=== PATIENT | male | born 1985 | race African-American/Black ===

== ENCOUNTER 2024-03-06 14:31 | Emergency (ER) | payer MEDICAID ==
[~2024-03-06] VITALS: Ht 175.3 cm; Wt 99.8 kg
[2024-03-06 14:51] VITALS: BP 145/79; PULSE 97; RESP 16; TEMP 98.6; O2SAT 100
[2024-03-06] MEDS ORDERED: AMOX-494 MT (17:24)
[2024-03-06] MEDS ORDERED: IBUP-2029 MT (17:24)
[2024-03-06] MEDS: KETOROLAC 30MG/ML VIAL IM ONE (17:30)
[2024-03-06] MEDS: DEXAMETHASONE 4MG/ML 1ML VIAL IM ONE (17:30)
== END 2024-03-06 18:00 | disposition home or self-care (01) ==
LOC: ER 14:38
DX: J02.9 Acute pharyngitis, unspecified (principal)
CPT/HCPCS: 96372; 99284; J1100; J1885; Z7610

== ENCOUNTER 2024-05-30 09:22 | Emergency (ER) | payer MEDICAID ==
[~2024-05-30] VITALS: Ht 175.3 cm; Wt 96.0 kg
[~2024-05-30 09:22] MED LIST: AMOX-494 MT; IBUP-2029 MT
[2024-05-30 09:23] VITALS: O2SAT 97
[2024-05-30 09:26] VITALS: BP 135/74; PULSE 99; RESP 14; TEMP 36.9; O2SAT 99
[2024-05-30] MEDS ORDERED: TUSSL MT (09:47)
[2024-05-30 11:34] LABS: INFLUENZA TYPE A Presumptive Negative (Pres. Neg.); INFLUENZA TYPE B Presumptive Negative (Pres. Neg.)
[2024-05-30] MEDS ORDERED: ALBU18HF2 IH (12:13)
== END 2024-05-30 12:39 | disposition home or self-care (01) ==
LOC: ER 09:22
DX: J20.9 Acute bronchitis, unspecified (principal); Z20.822 Contact with and (suspected) exposure to COVID-19
CPT/HCPCS: 87426; 87804; 99283